=== PATIENT | female | born 1985 | race Caucasian/White ===

== ENCOUNTER → 2018-05-28 | Outpatient (CLI) | payer BC ==
[~2018-05-28] MED LIST: AZIT250 PO; BENZ100A PO; PROCODE120 PO
[2018-05-30 15:06] LABS: HPV 16 Negative (Negative); HPV 18 Negative (Negative); HPV OTHER HR TYPES Negative (Negative)
== END | disposition home or self-care (01) ==
LOC: LAB SHORT 19:25 → LAB 19:25
PROVIDERS: Family Medicine
DX: Z01.419 Encounter for gynecological examination (general) (routine) without abnormal findings (principal)
CPT/HCPCS: 87624; G0145

== ENCOUNTER → 2022-02-15 | Outpatient (CLI) | payer BC | LOC: PLD 11:12 → LAB SHORT 11:12 | DX: L57.0 Actinic keratosis (principal) | CPT/HCPCS: 88305 ==